=== PATIENT | female | born 1970 | race Caucasian/White ===

== ENCOUNTER 2017-10-18 15:44 | Inpatient (IN) ==
[2017-10-18] MEDS ORDERED: CLINDAMYCIN INJ 600 MG in PREMIX 1 EACH IV STA (16:32)
[2017-10-18] MEDS ORDERED: ONDANSETRON 4 MG/2 ML VIAL ONE (16:49)
[2017-10-18] MEDS ORDERED: HYDROmorphone 2 MG/1 ML VIAL ONE (16:50)
[2017-10-18] MEDS ORDERED: ONDANSETRON 4 MG/2 ML VIAL IV STA (16:52)
[2017-10-18] MEDS ORDERED: HYDROmorphone 2 MG/1 ML VIAL IV STA (16:52)
[2017-10-18] MEDS ORDERED: CLINDAMYCIN INJ 50 ML IV ONE (16:56)
[2017-10-18 16:57] LABS: Basophils % 0.1 % (0.0-0.8); Eosinophils % 0.2 % (0.00-10.9); Hematocrit 23.2 VOL% (35.7-47.0); Immature Granulocytes % 1.1 %; Immature Granulocytes Absolute 0.22 #; Lymphocytes # 1.8 10*3/uL (1.4-4.0); Lymphocytes % 8.8 % (21.3-54.2); Mean Corpuscular HGB Conc 30.2 GM/DL (32-36); Mean Corpuscular Hemoglobin 23 PG (27-34); Mean Corpuscular Volume 75.1 FL (87-102); Mean Platelet Volume 9.6 FL (9.6-12.0); Monocytes # 0.9 10*3/uL (0.11-0.8); Monocytes % 4.3 % (1.7-12.7); Neutrophils # 17.1 10*3/uL (1.4-7.4); Neutrophils % 85.5 % (38.7-73.9); Platelet Count 294 T/CUMM (130-400); Red Blood Count 3.09 MC/CUMM (3.8-5.5); Red Cell Distribution Width 19.1 % (9.3-17.3)
[2017-10-18 17:10] LABS: Apearance,Urine CLOUDY (Clear); Bacteria,Urine Moderate /HPF (Few); Bilirubin,Urine Negative (Negative); Blood, Urine Negative (Negative); Glucose,Urine (UA) Negative (Negative); Ketones,Urine Negative (Negative); Mucus,Urine Occasional /LPF (Occasional); Nitrite,Urine Positive (Negative); Protein,Urine Negative; RBC,Urine 19 /HPF (0-4); Urine Color Yellow (Yellow); Urine Specific Gravity 1.014 (1.001-1.035); Urine Urobilinogen < 2.0 EU/DL (0.2-1.0); WBC,Urine 388 /HPF (0-6)
[2017-10-18 17:18] LABS: Alanine Aminotransferase 31 U/L (13-56); Albumin 1.6 G/DL (3.4-5.0); Alkaline Phosphatase 83 U/L (45-117); Aspartate Amino Transferase 67 U/L (0-37); Bilirubin,Total < 0.39 MG/DL (0.2-1.0); Blood Urea Nitrogen 16 MG/DL (7-18); Calcium 8.3 MG/DL (8.5-10.1); Glucose 101 MG/DL (74-106); Osmolality,Calculated 262.7 MOS/KG (273-304); Potassium 3.4 MMOL/L (3.5-5.1); Sodium 131 MMOL/L (136-145); Total Protein 6.7 G/DL (6.4-8.3)
[2017-10-18 17:20] LABS: Lactic Acid 2.1 MMOL/L (0.4-2.0)
[2017-10-18] MEDS ORDERED: SODIUM CHLORIDE 0.9% 1,000 ML IV STA (17:26)
[2017-10-18] MEDS ORDERED: LEVOFLOXACIN INJ 500 MG in PREMIX 1 EACH IV STA (17:27)
[2017-10-18] MEDS ORDERED: LEVOFLOXACIN INJ 100 ML IV ONE (17:34)
[2017-10-18] MEDS ORDERED: ACETAMINOPHEN 325 MG TABLET PO PRN (17:58)
[2017-10-18] MEDS ORDERED: VANCOMYCIN INJ 2,500 MG in SODIUM CHLORIDE 0.9% 500 ML IV ONE (21:00)
[2017-10-18 21:44] LABS: Lactic Acid 2.7 MMOL/L (0.4-2.0)
[2017-10-18] MEDS: POTASSIUM CHLORIDE 20 MEQ TABLET PO SCH ×2 (21:54→23:51)
[2017-10-18] MEDS: ENOXAPARIN 40 MG/0.4 ML SYRINGE SUBCUT SCH (21:55)
[2017-10-18] MEDS: PIPERACILLIN/TAZOBACTAM 3,375 MG in SODIUM CHLORIDE 0.9% 100 ML IV SCH (21:56)
[2017-10-18] MEDS: SODIUM CHLORIDE 0.9% 1,000 ML IV SCH (21:56)
[2017-10-18] MEDS: ONDANSETRON 4 MG/2 ML VIAL IV PRN (22:01)
[2017-10-19 00:57] LABS: Basophils % 0.1 % (0.0-0.8); Hematocrit 19.8 VOL% (35.7-47.0); Immature Granulocytes % 1.3 %; Immature Granulocytes Absolute 0.24 #; Lymphocytes # 1.6 10*3/uL (1.4-4.0); Lymphocytes % 8.6 % (21.3-54.2); Mean Corpuscular HGB Conc 31.8 GM/DL (32-36); Mean Corpuscular Hemoglobin 23 PG (27-34); Mean Corpuscular Volume 73.6 FL (87-102); Mean Platelet Volume 9.6 FL (9.6-12.0); Monocytes # 0.8 10*3/uL (0.11-0.8); Monocytes % 4.2 % (1.7-12.7); NRBC # 0.02 10*3/uL; Neutrophils % 85.8 % (38.7-73.9); Platelet Count 295 T/CUMM (130-400); Red Blood Count 2.69 MC/CUMM (3.8-5.5); White Blood Count 18.6 T/CUMM (4-12)
[2017-10-19 01:00] LABS: Hemoglobin 6.3 GM/DL (12.0-16.0)
[2017-10-19] MEDS ORDERED: SODIUM CHLORIDE 0.9% 1,000 ML IV PRN (01:21)
[2017-10-19 01:26] LABS: Band Neutrophils 1 % (0-10); Hypochromasia 2+; Lymphocytes 4 % (20-55); Microcytosis 2+; Platelet Estimate Adequate; Segmented Neutrophils 91 % (50-85); Total Cells Counted 100
[2017-10-19 01:27] LABS: Target Cells Slight
[2017-10-19 01:32] LABS: Calcium 7.8 MG/DL (8.5-10.1); Osmolality,Calculated 266.4 MOS/KG (273-304); Potassium 3.5 MMOL/L (3.5-5.1)
[2017-10-19] MEDS: SODIUM CHLORIDE 0.9% 1,000 ML IV SCH ×3 (05:35→22:41)
[2017-10-19] MEDS ORDERED: POTASSIUM CHLORIDE 20 MEQ TABLET PO SCH (06:00)
[2017-10-19] MEDS: PIPERACILLIN/TAZOBACTAM 3,375 MG in SODIUM CHLORIDE 0.9% 100 ML IV SCH ×3 (06:07→21:35)
[2017-10-19] MEDS: POTASSIUM CHLORIDE 20 MEQ TABLET PO SCH (06:11)
[2017-10-19] MEDS: MORPHINE 10 MG/1 ML VIAL IV PRN ×3 (06:17→19:55)
[2017-10-19] MEDS: ONDANSETRON 4 MG/2 ML VIAL IV PRN ×3 (06:28→19:56)
[2017-10-19] MEDS: FUROSEMIDE 40 MG TABLET PO SCH ×2 (08:26→15:53)
[2017-10-19] MEDS ORDERED: VANCOMYCIN INJ 2,000 MG in SODIUM CHLORIDE 0.9% 500 ML IV ONE (09:00)
[2017-10-19 11:21] LABS: Apearance,Urine CLOUDY (Clear); Bilirubin,Urine Negative (Negative); Blood, Urine Moderate mg/dL (Negative); Glucose,Urine (UA) Negative (Negative); Ketones,Urine Negative (Negative); Mucus,Urine Occasional /LPF (Occasional); Nitrite,Urine Negative (Negative); Protein,Urine 30 MG/DL; RBC,Urine 5 /HPF (0-4); Squamous Epithelial Cell,Urine Occasional /HPF (0-10); Urine Color Yellow (Yellow); Urine Specific Gravity 1.008 (1.001-1.035); Urine Urobilinogen < 2.0 EU/DL (0.2-1.0); WBC,Urine 74 /HPF (0-6)
[2017-10-19] MEDS: ENOXAPARIN 40 MG/0.4 ML SYRINGE SUBCUT SCH (21:35)
[2017-10-20 04:09] LABS: Hematocrit 25.5 VOL% (35.7-47.0)
[2017-10-20] MEDS: PIPERACILLIN/TAZOBACTAM 3,375 MG in SODIUM CHLORIDE 0.9% 100 ML IV SCH (04:44)
[2017-10-20] MEDS: SODIUM CHLORIDE 0.9% 1,000 ML IV SCH ×4 (04:44→23:47)
[2017-10-20] MEDS ORDERED: VANCOMYCIN INJ 2,000 MG in SODIUM CHLORIDE 0.9% 500 ML IV SCH (07:30)
[2017-10-20] MEDS: MORPHINE 10 MG/1 ML VIAL IV PRN (09:25)
[2017-10-20] MEDS: FUROSEMIDE 40 MG TABLET PO SCH ×2 (09:26→16:56)
[2017-10-20] MEDS: ONDANSETRON 4 MG/2 ML VIAL IV PRN (09:26)
[2017-10-20] MEDS: CEFTAROLINE 600 MG in SODIUM CHLORIDE 0.9% 100 ML IV SCH ×2 (11:36→23:45)
[2017-10-20] MEDS: MORPHINE ER 15 MG TABLET PO SCH ×2 (11:36→21:18)
[2017-10-20] MEDS ORDERED: ALBUTEROL/IPRATROPIUM 3 ML NEB RESP TX PRN (19:05)
[2017-10-20] MEDS ORDERED: guaiFENesin 200 MG/10 ML UDCUP PO PRN (19:05)
[2017-10-20] MEDS: ENOXAPARIN 40 MG/0.4 ML SYRINGE SUBCUT SCH (20:50)
[2017-10-20] MEDS: SIMETHICONE CHEW 125 MG TABLET PO PRN (23:45)
[2017-10-21] MEDS: SODIUM CHLORIDE 0.9% 1,000 ML IV SCH (02:22)
[2017-10-21] MEDS ORDERED: FUROSEMIDE 40 MG/4 ML VIAL IV ONE (09:54)
[2017-10-21] MEDS: FUROSEMIDE 40 MG TABLET PO SCH ×2 (09:54→17:04)
[2017-10-21] MEDS: MORPHINE ER 15 MG TABLET PO SCH ×2 (09:54→21:58)
[2017-10-21] MEDS: CEFTAROLINE 600 MG in SODIUM CHLORIDE 0.9% 100 ML IV SCH ×2 (11:07→23:13)
[2017-10-21] MEDS: SIMETHICONE CHEW 125 MG TABLET PO PRN (11:08)
[2017-10-21] MEDS: MORPHINE 10 MG/1 ML VIAL IV PRN (21:53)
[2017-10-21] MEDS: ENOXAPARIN 40 MG/0.4 ML SYRINGE SUBCUT SCH (21:56)
[2017-10-22 05:24] LABS: Basophils % 0.2 % (0.0-0.8); Eosinophils # 0.2 10*3/uL (0.0-0.87); Eosinophils % 1.3 % (0.00-10.9); Hematocrit 27.1 VOL% (35.7-47.0); Hemoglobin 8.6 GM/DL (12.0-16.0); Immature Granulocytes % 2.2 %; Immature Granulocytes Absolute 0.36 #; Lymphocytes # 1.8 10*3/uL (1.4-4.0); Lymphocytes % 11.1 % (21.3-54.2); Mean Corpuscular HGB Conc 31.7 GM/DL (32-36); Mean Corpuscular Hemoglobin 25 PG (27-34); Mean Corpuscular Volume 79.2 FL (87-102); Mean Platelet Volume 9.3 FL (9.6-12.0); Monocytes # 0.8 10*3/uL (0.11-0.8); Monocytes % 4.8 % (1.7-12.7); Neutrophils % 80.4 % (38.7-73.9); Platelet Count 286 T/CUMM (130-400); Red Blood Count 3.42 MC/CUMM (3.8-5.5); Red Cell Distribution Width 19.3 % (9.3-17.3); White Blood Count 16.2 T/CUMM (4-12)
[2017-10-22 05:55] LABS: Calcium 7.9 MG/DL (8.5-10.1); Osmolality,Calculated 273.7 MOS/KG (273-304); Potassium 3.7 MMOL/L (3.5-5.1)
[2017-10-22] MEDS: FUROSEMIDE 40 MG TABLET PO SCH ×2 (08:49→15:09)
[2017-10-22] MEDS: MORPHINE ER 15 MG TABLET PO SCH ×2 (08:49→20:11)
[2017-10-22] MEDS: DEXAMETHASONE 4 MG TABLET PO SCH ×2 (10:33→20:11)
[2017-10-22] MEDS: CEFTAROLINE 600 MG in SODIUM CHLORIDE 0.9% 100 ML IV SCH ×2 (10:33→21:16)
[2017-10-22] MEDS: CLINDAMYCIN INJ 900 MG in PREMIX 1 EACH IV SCH ×2 (10:33→18:30)
[2017-10-22] MEDS: SIMETHICONE CHEW 125 MG TABLET PO PRN (12:25)
[2017-10-22] MEDS: ENOXAPARIN 40 MG/0.4 ML SYRINGE SUBCUT SCH (20:12)
[2017-10-22] MEDS: MORPHINE 10 MG/1 ML VIAL IV PRN (21:37)
[2017-10-23] MEDS: CLINDAMYCIN INJ 900 MG in PREMIX 1 EACH IV SCH ×3 (03:07→18:42)
[2017-10-23] MEDS: FUROSEMIDE 40 MG TABLET PO SCH ×2 (09:36→16:08)
[2017-10-23] MEDS: DEXAMETHASONE 4 MG TABLET PO SCH ×2 (09:36→21:02)
[2017-10-23] MEDS: SIMETHICONE CHEW 125 MG TABLET PO PRN ×2 (09:36→16:10)
[2017-10-23] MEDS: MORPHINE ER 15 MG TABLET PO SCH ×2 (09:36→21:01)
[2017-10-23] MEDS: CEFTAROLINE 600 MG in SODIUM CHLORIDE 0.9% 100 ML IV SCH ×2 (09:40→21:08)
[2017-10-23] MEDS: ENOXAPARIN 40 MG/0.4 ML SYRINGE SUBCUT SCH (21:02)
[2017-10-24] MEDS: CLINDAMYCIN INJ 900 MG in PREMIX 1 EACH IV SCH ×3 (02:36→18:05)
[2017-10-24] MEDS: MORPHINE 10 MG/1 ML VIAL IV PRN ×2 (07:05→23:32)
[2017-10-24 08:47] LABS: Basophils % 0.2 % (0.0-0.8); Hematocrit 29.8 VOL% (35.7-47.0); Hemoglobin 9.2 GM/DL (12.0-16.0); Immature Granulocytes % 2.1 %; Immature Granulocytes Absolute 0.37 #; Lymphocytes # 1.5 10*3/uL (1.4-4.0); Lymphocytes % 8.6 % (21.3-54.2); Mean Corpuscular HGB Conc 30.9 GM/DL (32-36); Mean Corpuscular Hemoglobin 25 PG (27-34); Mean Corpuscular Volume 80.8 FL (87-102); Monocytes # 0.3 10*3/uL (0.11-0.8); Monocytes % 1.7 % (1.7-12.7); Neutrophils # 15.5 10*3/uL (1.4-7.4); Neutrophils % 87.4 % (38.7-73.9); Platelet Count 323 T/CUMM (130-400); Red Blood Count 3.69 MC/CUMM (3.8-5.5); Red Cell Distribution Width 19.8 % (9.3-17.3); White Blood Count 17.7 T/CUMM (4-12)
[2017-10-24] MEDS: MORPHINE ER 15 MG TABLET PO SCH ×2 (09:13→21:42)
[2017-10-24] MEDS: DEXAMETHASONE 4 MG TABLET PO SCH ×2 (09:13→21:43)
[2017-10-24] MEDS: FUROSEMIDE 40 MG TABLET PO SCH ×2 (09:14→18:04)
[2017-10-24] MEDS: SIMETHICONE CHEW 125 MG TABLET PO PRN ×2 (09:16→12:06)
[2017-10-24 09:24] LABS: Calcium 8.3 MG/DL (8.5-10.1); Osmolality,Calculated 283.4 MOS/KG (273-304)
[2017-10-24] MEDS: CEFTAROLINE 600 MG in SODIUM CHLORIDE 0.9% 100 ML IV SCH ×2 (09:39→21:45)
[2017-10-24] MEDS: SKIN HEALING OINT (AQUAPHOR) 50 GM TUBE TOP SCH (13:45)
[2017-10-24] MEDS: ENOXAPARIN 40 MG/0.4 ML SYRINGE SUBCUT SCH (21:43)
[2017-10-25] MEDS: CLINDAMYCIN INJ 900 MG in PREMIX 1 EACH IV SCH ×2 (04:27→14:11)
[2017-10-25] MEDS: DEXAMETHASONE 4 MG TABLET PO SCH (10:27)
[2017-10-25] MEDS: CEFTAROLINE 600 MG in SODIUM CHLORIDE 0.9% 100 ML IV SCH (10:27)
[2017-10-25] MEDS: FUROSEMIDE 40 MG TABLET PO SCH ×2 (10:27→17:56)
[2017-10-25] MEDS: MORPHINE ER 15 MG TABLET PO SCH (10:27)
[2017-10-25] MEDS: SKIN HEALING OINT (AQUAPHOR) 50 GM TUBE TOP SCH (10:28)
[2017-10-25 11:56] VITALS: BP 141/69
[2017-10-25] MEDS ORDERED: CEFTAROLINE 600 MG in SODIUM CHLORIDE 0.9% 50 ML IV SCH (21:30)
== END 2017-10-25 17:50 | disposition hospice, home (50) | DRG 466 ==
LOC: EDUNIT# → EDBD → N.ED 15:44 → N.EDINP 17:35 → SUATTDRO 17:35 → N.3E 19:12
PROVIDERS: ADMIT Internal Medicine Infectious Disease; ATTEND Internal Medicine